=== PATIENT | male | born 1960 | race Caucasian/White ===

== ENCOUNTER 2018-09-17 09:37 | Outpatient (CLI) | payer OTHER ==
--- NOTE | 2018-09-17 10:12 | RAD ---
EXAM: Lumbar spine 3 views including flexion and extension lateral views HISTORY: Low back pain COMPARISON: None FINDINGS: No abnormal translation. No evidence for acute fracture or dislocation involving the visualized spine. There are disc osteophytosis and facet arthrosis changes. No evidence for malalignment. No evidence for a bone lesion. IMPRESSION: Spondylosis. No significant acute process.
== END 2018-09-17 09:38 | disposition home or self-care (01) ==
LOC: TBSIIMAG 09:37
PROVIDERS: ATTEND Neurological Surgery
DX: M54.5 Low back pain (principal); M47.816 Spondylosis without myelopathy or radiculopathy, lumbar region
CPT/HCPCS: 72100